=== PATIENT | male | born 1975 | race Caucasian/White ===

== ENCOUNTER 2024-02-28 13:42 | Emergency (ER) | payer BC, SELFPAY ==
[2024-02-28 13:43] VITALS: BP 133/85
[2024-02-28 14:04] LABS: % Basophils 0.4 % (0-2); % Eosinophils 0.8 % (0-6); % Immature Granulocytes 0.6 % (0-0.5); % Lymphocytes 10.2 % (20.5-51.1); % Monocytes 14.1 % (1.7-9.3); % Neutrophils 73.9 % (42.2-75.2); Absolute Basophils 0.1 10^3/uL (0-0.2); Absolute Eosinophils 0.1 10^3/uL (0-0.7); Absolute Immature Granulocytes 0.1 10^3/uL (0-0.05); Absolute Lymphocytes 1.2 10^3/uL (1.2-3.4); Absolute Monocytes 1.6 10^3/uL (0.1-0.6); Absolute Neutrophils 8.5 10^3/uL (1.4-6.5); Hematocrit 43.5 % (39.0-52.0); Hemoglobin 15.7 g/dL (13.0-18.0); Mean Corp Hgb Conc. 36.1 g/dL (33.0-37.0); Mean Corpuscular Hgb 29.3 pg (27.0-31.0); Mean Corpuscular Volume 81.3 fL (80.0-94.0); Mean Platelet Volume 9.5 fL (7.4-10.4); Nucleated Red Blood Cells % 0 % (-); Platelet Count 231 10^3/uL (130-400); Red Blood Cell Count 5.35 10^6/uL (4.70-6.10); Red Cell Dist. Width 13.1 % (11.5-14.5); White Blood Cell Count 11.5 10^3/uL (4.8-10.8)
[2024-02-28 14:23] LABS: ALT (SGPT) 37 U/L (0-50); AST (SGOT) 27 U/L (17-59); Albumin 4.3 g/dl (3.5-5.0); Alkaline Phosphatase 108 U/L (38-126); Blood Urea Nitrogen 12 mg/dl (9-20); Calcium 9.2 mg/dl (8.4-10.2); Carbon Dioxide 24 mmol/L (22-30); Chloride 100 mmol/L (98-107); Glucose 129 mg/dl (70-99); Lipase 92 U/L (23-300); Potassium 4.3 mmol/L (3.5-5.1); Sodium 133 mmol/L (135-145); Total Bilirubin 1.1 mg/dl (0.2-1.3); Total Protein 6.8 g/dl (6.3-8.2); eGFR > 60.00
--- NOTE | 2024-02-28 15:29 | ED.GENMED ---
History of Present Illness
General
Chief Complaint: Abdominal Pain
Source: patient
Time Seen by Provider: 02/28/24 15:01
History of Present Illness
History of Present Illness:
48yoM with a history of ADHD and obesity presenting for evaluation of abdominal pain. Symptoms began overnight and woke him up from sleep. He reports a cramping pain in his periumbilical region. Pain is constant but also comes in waves. Nothing
seems to make the pain better or worse. He took a dose of leftover pantoprazole earlier today without improvement. He also reports nausea but denies any vomiting. He is otherwise asymptomatic and denies any fevers, chills, chest pain, shortness
of breath, diarrhea, constipation, dysuria, back pain. Patient was seen in the ED in May 2023 and was diagnosed with gastritis. He states his current symptoms are different and the location of his pain is lower than what it was at that time.
No previous abdominal surgeries.
Past History
Past History
ED Past Medical History: Psychiatric (ADHD)
ED Past Surgical History: Orthopedic (Left ruptured patella)
Social History
Tobacco: Non-smoker
Alcohol: Occasional
Drug: None
Personal:
Living: with family
Employment: Employed
Phy Exam
General Physical Exam
General Presentation: well appearing and no apparent distress
General age: appears stated age
General Skin: warm and dry
General Habitus: normal and obese
General Mental: alert
General Hydration: appears well hydrated
Cardiovascular Exam
Cardiovascular Exam: regular rate/rhythm, no edema and no murmur
Pulmonary Exam
Pulmonary Exam: lungs clear, no respiratory distress, no crackles and no wheezing
Gastrointestinal Exam
Gastrointestinal Exam: soft, non distended and tender (Mild tenderness in RUQ. Negative Franks's sign. No rebound, guarding, or rigidity noted. )
Palpation: right upper quadrant: Mild tenderness
Skin Exam
Skin Exam: normal color and warm/dry
Psychiatric Exam
Psychiatric Exam: normal mood/affect
Course
Orders/Labs/Results
Orders:
Orders
02/28/24 13:52
Complete Blood Count/With Diff Urgent
Comprehensive Metabolic Panel Urgent
Lipase Urgent
02/28/24 15:23
CT Abd/pelvis W Iv Cont Urgent
Comment:
Reason For Exam: Periumbilical pain
0.9% Sodium Chloride 1000 ml [Nss] 1,000 ml IV BOLUS
Ketorolac [Toradol] 15 mg IV NOW STA
Abnormal Lab Results
02/28/24
13:52
WBC 11.5 H 10^3/uL
(4.8-10.8)
Abs Immat Gran (auto) 0.1 H 10^3/uL
(0-0.05)
Absolute Neuts (auto) 8.5 H 10^3/uL
(1.4-6.5)
Absolute Monos (auto) 1.6 H 10^3/uL
(0.1-0.6)
Immature Gran % 0.6 H %
(0-0.5)
Lymphocytes % 10.2 L %
(20.5-51.1)
Monocytes % 14.1 H %
(1.7-9.3)
Sodium 133 L mmol/L
(135-145)
Glucose 129 H mg/dl
(70-99)
02/28/24 13:52
02/28/24 13:52
Vital Signs
Initial and Last Documented VS:
Initial Vital Signs
Temp Pulse Resp BP Pulse Ox
99 F 93 18 133/85 95
02/28/24 13:43 02/28/24 13:43 02/28/24 13:43 02/28/24 13:43 02/28/24 13:43
Last Documented Vital Signs
Temp Pulse Resp BP Pulse Ox
99 F 89 15 113/73 97
02/28/24 13:43 02/28/24 17:50 02/28/24 17:50 02/28/24 17:50 02/28/24 17:50
MDM/Problems Addressed
Differential Diagnosis Includes:
48yoM here with periumbilical pain since last night. Cramping pain. Associated with nausea. He is afebrile and hemodynamically stable. He is well appearing in no distress. No signs of peritonitis on abdominal exam. Differential diagnosis includes
but is not limited to: Pancreatitis, biliary colic, kidney stone, early appendicitis, nonspecific abdominal pain
Initial ED plan: Check abdominal labs and CT abdomen. IV Toradol for pain.
*Critical Care Note
Total Time (30-74mins, 75-104mins- exclusive of procedures): Not Applicable
Update Note
Update Note:
Labs reveal a mild leukocytosis with a white count of 11.5 which is nonspecific. Remainder of labs unremarkable including normal lipase, LFTs, and renal function. CT abdomen shows evidence of mild mesenteric panniculitis. Appendix is normal. No
other acute abnormality seen on imaging. Patient feeling improved after Toradol. He is stable for discharge. Supportive care discussed. Advised PCP follow-up and ED return precautions discussed. He expressed understanding and is agreeable to
plan. Patient discharged in stable condition.
ED Attending Note
-
Portions of this chart may have been created with voice recognition software.� Occasional wrong word or��sound alike� substitutions may have occurred due to the inherent limitations of voice recognition software.
Discharge Plan
Departure
Patient Disposition: Home (Routine Discharge)
Date of Disposition: 02/28/24
Time of Disposition: 17:46
Patient with high blood pressure during this ER visit?: Yes
Discharge Problem:
Mesenteric panniculitis
Instructions: Abdominal pain in adults - Discharge instructions
Prescriptions:
No Action
pantoprazole [Protonix] 40 mg tablet,delayed release (DR/EC)
40 mg PO DAILY Qty: 30 0RF
Referrals:
UNKNOWN - PT DOES,NOT KNOW [Family Provider] -
Activity Restrictions/Additional Instructions:
Take Tylenol and ibuprofen as needed for pain.
Please call tomorrow to schedule a follow-up appointment with your family doctor. Return to the ER with any new or worsening symptoms.
Interventions
Interventions:
*Risk Screen - Suicide Last Done: 02/28/24 13:43
*General Assessment Last Done: 02/28/24 13:43
*Neglect/Abuse Screening Last Done: 02/28/24 13:43
ED- Fall Risk Assessment Last Done: 02/28/24 15:56
YV-Yzkwwo-Xmrvhjbyhg Assessment Last Done: 02/28/24 15:56
Discharge Date and Time
Print Language: THAI
[2024-02-28] MEDS: TORADOL 15 MG IV (15:43)
[2024-02-28] MEDS: NSS 1000 IV (15:43)
[2024-02-28 17:50] VITALS: BP 113/73
== END 2024-02-28 18:15 | disposition home or self-care (01) ==
LOC: EMR 13:42
PROVIDERS: EMERGENCY PHYSICIAN Emergency Medicine
DX: K65.4 Sclerosing mesenteritis (principal)
CPT/HCPCS: 99285; 96374; 96361; 74177; 80053; 83690; 85025; Q9967

== ENCOUNTER 2024-05-03 14:20 | Outpatient (RCR) | payer BC, SELFPAY | END 2024-05-03 23:59 | disposition home or self-care (01) | LOC: ROT 14:20 | PROVIDERS: ATTENDING PHYSICIAN Orthopaedic Surgery; FAMILY PHYSICIAN Nurse Practitioner | DX: M72.0 Palmar fascial fibromatosis [Dupuytren] (principal); Z73.6 Limitation of activities due to disability | CPT/HCPCS: 97535; 97760 ==

== ENCOUNTER → 2024-08-20 11:47 | Outpatient (REF) | payer BC, SELFPAY | LOC: HWRAD 11:47 | PROVIDERS: ATTENDING PHYSICIAN Nurse Practitioner | DX: R93.7 Abnormal findings on diagnostic imaging of other parts of musculoskeletal system (principal) | CPT/HCPCS: 72131 ==

== ENCOUNTER 2025-06-11 06:23 | Day surgery (SDC) | payer BC, SELFPAY ==
[2025-06-11 09:08] LABS: Glucose - Point of Care 97 mg/dl (70-99)
== END 2025-06-11 10:39 | disposition home or self-care (01) ==
LOC: GI 06:23
PROVIDERS: ATTENDING PHYSICIAN Student in an Organized Health Care Education/Training Program
DX: Z12.11 Encounter for screening for malignant neoplasm of colon (principal); K64.8 Other hemorrhoids; D12.2 Benign neoplasm of ascending colon; D12.5 Benign neoplasm of sigmoid colon; K63.5 Polyp of colon; K62.1 Rectal polyp
CPT/HCPCS: 45385; 45380; 82962; 88305